=== PATIENT | female | born 1995 | race Two or more races ===

== ENCOUNTER 2023-10-24 09:07 | Outpatient (REF) | payer OTHER, SELFPAY ==
--- NOTE | ~2023-10-24 | US_ITS ---
EXAMINATION: US PELVIS CLINICAL INFORMATION: Irregular vaginal bleeding for 3 months LMP 10/15/2023 COMPARISON: None available. TECHNIQUE: Ultrasound of the pelvis is performed using both transabdominal and transvaginal transducers along with Doppler. Transvaginal imaging is performed due to inadequate visualization transabdominally. FINDINGS: Uterus: The uterus is anteverted and measures 6.7 x 3.6 x 4.3 cm. The endometrial thickness is 0.4 cm. The uterus is smooth in contour and has normal myometrial echogenicity. No visible fibroid. Adnexa: Both ovaries are visualized. There is normal color flow to the adnexa. There is no ovarian torsion. There is no pelvic ascites or fluid collection. The ovaries are normal in appearance. Right ovary measures 1.5 x 2.6 x 1.8 cm. Volume 3.7 mL. Left ovary measures 2.7 x 1.0 x 1.5 cm. Volume 3.9 mL. US/US pelvic and transvaginal IMPRESSION: Normal pelvic ultrasound.
== END 2023-10-24 09:08 | disposition home or self-care (01) ==
LOC: HO.UMASIMG 09:07
PROVIDERS: Visit Provider Nurse Practitioner Women's Health
DX: N92.6 Irregular menstruation, unspecified (principal)
CPT/HCPCS: 76830; 76856